=== PATIENT | male | born 1950 | race Caucasian/White ===

== ENCOUNTER 2023-12-11 13:39 | Emergency (ER) | payer MEDICARE, OTHER, SELFPAY ==
[2023-12-11 13:45] VITALS: BP 114/82; PULSE 87; O2SAT 97; BMI 28.1
--- NOTE | 2023-12-11 13:46 | XR_ITS ---
The [address] [address] Patient Name: NATASHA NEWSOME MRN: [id number] date: 1950 Sex: M Assigned Patient Location: ER Current Patient Location: ER Accession/Order Number: [id number] Exam Date: 12/11/2023 13:55 Report Date: 12/11/2023 14:22 At the request of: MARLA JENSEN Procedure: XR femur LT 2V PROCEDURE: XR tibia fibula LT 2V, XR femur LT 2V HISTORY: tractor ran over leg COMPARISON: None. FINDINGS: BONES:Moderate narrowing of the medial compartment knee joint with periarticular osteophytes. No fracture, dislocation, bone lesion. SOFT TISSUES:Subcutaneous edema medial to the knee. No radiopaque foreign body. EFFUSION:None visible. OTHER: Negative. XR/XR femur LT 2V IMPRESSION: 1. No acute bone abnormality of the femur or tibia-fibula. 2. 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 Electronically authenticated by: RHIANNON DENNIS Date: 12/11/2023 14:22
--- NOTE | 2023-12-11 13:46 | XR_ITS ---
The [address] [address] Patient Name: NATASHA NEWSOME MRN: [id number] date: 1950 Sex: M Assigned Patient Location: ER Current Patient Location: ER Accession/Order Number: [id number] Exam Date: 12/11/2023 13:55 Report Date: 12/11/2023 14:22 At the request of: MARLA JENSEN Procedure: XR tibia fibula LT 2V PROCEDURE: XR tibia fibula LT 2V, XR femur LT 2V HISTORY: tractor ran over leg COMPARISON: None. FINDINGS: BONES:Moderate narrowing of the medial compartment knee joint with periarticular osteophytes. No fracture, dislocation, bone lesion. SOFT TISSUES:Subcutaneous edema medial to the knee. No radiopaque foreign body. EFFUSION:None visible. OTHER: Negative. XR/XR tibia fibula LT 2V IMPRESSION: 1. No acute bone abnormality of the femur or tibia-fibula. 2. 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 Electronically authenticated by: RHIANNON DENNIS Date: 12/11/2023 14:22
[2023-12-11 13:48] VITALS: TEMP 36.6
--- NOTE | 2023-12-11 13:48 | ED_ITS ---
HPI HPI - Extremity Injury (Lower) General Chief Complaint: Extremity Injury, Lower Stated Complaint: LOWER EXTREMITY INJURY, LEFT Time Seen by Provider: 12/11/23 13:42 Source: patient Mode of arrival: Wheelchair History of Present Illness HPI Narrative: Patient is a 73-year-old male who presents to the emergency department for the evaluation of an injury to the left leg after a tractor ran over his leg at home. He sustained multiple abrasions and a small laceration to the left leg. Bleeding is well-controlled. Patient is on no home medications, unknown last tetanus. No other associated injuries. Patient's [id number] drove him to the emergency department. He is able to stand and transfer. Related Data Previous Rx's ?Medication ?Instructions ?Recorded cephalexin 500 mg capsule 500 mg PO Q8H 10 days #30 caps 12/11/23 hydrocodone 5 mg-acetaminophen 325 1 tab PO Q6H PRN pain 3 days #12 12/11/23 mg tablet tabs ondansetron 4 mg disintegrating 4 mg PO Q6H PRN nausea and 12/11/23 tablet vomiting #12 tabs Allergies Allergy/AdvReac Type Severity Reaction Status Date / Time No Known Drug Allergies Allergy Verified 12/11/23 13:48 Opioid HPI Opioid Management Most Recent Pain and Opioid Data: No Data to Display Review of Systems ROS Constitutional Denies: fever or chills Ears, nose, mouth, and throat Denies: throat pain Respiratory Denies: shortness of breath Gastrointestinal Denies: nausea or vomiting Musculoskeletal Reports: extremity pain; Denies: back pain, neck pain or extremity swelling Integumentary/Breast Denies: rash Hematologic/Lymphatic Denies: easy bruising or easy bleeding Exam Narrative Exam Narrative: Gen.: Awake, alert, in no distress Head: Normocephalic, atraumatic ENT: Moist mucous membranes Respiratory: No respiratory distress Extremities: Left lower extremity with abrasion noted to the medial and posterior aspect of the left leg extending from the mid thigh to the ankle. Multiple abrasions noted of the left posterior knee and left ankle. 4 cm laceration noted on the posterior aspect of the left knee adjacent to the abrasions. Mild subcutaneous tissue exposure with no active bleeding. No laceration over the knee joint or ankle joint. Psych: Normal mood and affect Neuro: No focal neuro deficit Skin: Warm, dry Constitutional Vital Signs, click to edit/add: Last Vital Signs Pulse 87 12/11/23 13:45 Resp 16 12/11/23 13:45 BP 114/82 12/11/23 13:45 Pulse Ox 97 12/11/23 13:45 O2 Del Method Room Air 12/11/23 13:45 Course Vital Signs Vital signs: Vital Signs Pulse Rate 87 12/11/23 13:45 Respiratory Rate 16 12/11/23 13:45 Blood Pressure 114/82 12/11/23 13:45 Pulse Oximetry 97 12/11/23 13:45 Oxygen Delivery Method Room Air 12/11/23 13:45 Pulse Rate 87 12/11/23 13:45 Respiratory Rate 16 12/11/23 13:45 Blood Pressure 114/82 12/11/23 13:45 Pulse Oximetry 97 12/11/23 13:45 Oxygen Delivery Method Room Air 12/11/23 13:45 MDM - Extremity Injury (Lower) MDM Narrative Medical decision making narrative: Portable x-rays were obtained of the left tib-fib and left femur. No evidence of bony abnormality and these imaging studies were reviewed by the radiologist. The 4 cm laceration to the posterior left calf was anesthetized, cleansed and approximated with sutures. Please see procedure note for details. The other abrasions were also cleansed and dressed with bacitracin, dressings and Jan wrap's. Patient treated with Ancef, tetanus update and Percocet in the ER. He is neurovascularly intact with no evidence of compartment syndrome at this time. Left thigh and left calf are soft and compressible and patient has no pain out of proportion with intact distal sensation to the leg. He was encouraged to ice and elevate the leg. Sutures removed in [address] Mccarthy. Return to the ER if symptoms change or worsen. Patient was placed on Keflex, hydrocodone and Zofran at home. Laceration repair: Done under sterile conditions. The use of Shur-Clens prep the area. Local injection with lidocaine 1% with epi was used, approximately 12 cc. The wound was irrigated copiously with normal saline. The wound was explored there was no evidence of foreign material. The laceration was approximated with 4-0 nylon. 7 simple interrupted sutures were placed. Patient tolerated the procedure well. The patient was neurovascularly intact post. the patient had bacitracin applied to the laceration and a dry sterile dressing was place. The patient will need to follow-up in the next 9-10 days for removal SUPERVISED APC VISIT, PHYSICIAN ATTESTATION: Based on the medical record the care appears appropriate. ? Medical Records Attestation: I reviewed the patient's medical records. Imaging Data XR femur/tib/fib: Attestation: I have reviewed the pertinent imaging results. Radiologist's impression: ITS Impressions Femur X-Ray 12/11/23 13:46 IMPRESSION: 1. No acute bone abnormality of the femur or tibia-fibula. 2. 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 Electronically authenticated by: RHIANNON DENNIS Date: 12/11/2023 14:22 Tibia/Fibula X-Ray 12/11/23 13:46 IMPRESSION: 1. No acute bone abnormality of the femur or tibia-fibula. 2. 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 Electronically authenticated by: RHIANNON DENNIS Date: 12/11/2023 14:22 Discharge Plan Discharge Stand Alone Forms: Portal Instructions Chief Complaint: Extremity Injury, Lower Clinical Impression: Crushing injury of left leg, Laceration of left leg, Abrasion of multiple sites of lower limb Patient Disposition: Home, Self-Care Time of Disposition Decision: 14:41 Condition: Good Prescriptions / Home Meds: New hydrocodone-acetaminophen 5-325 mg tablet 1 tab PO Q6H PRN (Reason: pain) 3 Days Qty: 12 0RF Rx Instructions: DX: S89.92XA cephalexin 500 mg capsule 500 mg PO Q8H 10 Days Qty: 30 0RF ondansetron 4 mg tablet,disintegrating 4 mg PO Q6H PRN (Reason: nausea and vomiting) Qty: 12 0RF Print Language: French Instructions: Laceration (ED), Abrasion (ED), Crush Injury (ED) Additional Instructions: Sutures removed in 9-[address] Mccarthy, call the office tomorrow to be scheduled Referrals: Physician,Non-Staff, MD [Primary Care Provider] - 1 week
[2023-12-11 13:52] VITALS: PULSE 87
[2023-12-11] MEDS: OXYCODONE HCL/ACETAMINOPHEN 5MG/325MG 1 TAB PO (14:11)
[2023-12-11] MEDS: BACITRACIN OINTMENT 28.4 GM TUBE 1 APPLIC TOPICAL (14:35)
[2023-12-11] MEDS: LIDOCAINE HCL 1%-EPINEPHRINE 1:100,000 20 ML MDV INJ (14:36)
[2023-12-11] MEDS: CEFAZOLIN SODIUM 1,000 MG, WATER FOR INJECTION,STERILE 2.5 ML IM (14:48)
[2023-12-11] MEDS: ADACEL DIPH,PERTUSS(ACELL),TET VAC/PF 0.5 ML ADULT SYRINGE IM (14:49)
== END 2023-12-11 15:09 | disposition home or self-care (01) ==
PROVIDERS: Emergency Provider Emergency Medicine Emergency Medical Services
DX: S87.82XA Crushing injury of left lower leg, initial encounter (principal); S81.812A Laceration without foreign body, left lower leg, initial encounter; S80.812A Abrasion, left lower leg, initial encounter; Z23 Encounter for immunization
CPT/HCPCS: 12002; 73552; 73590; 90471; 90715; 96372; 99284; J0690

== ENCOUNTER 2024-08-27 09:41 | Outpatient (OUT) | payer MEDICARE, OTHER, SELFPAY ==
--- NOTE | 2024-08-27 10:00 | CA_ITS ---
Patient Name: NATSAHA NEWSOME MR#: [id number] : 1950 Exam Date: 08/27/2024 Ordering Doctor: DR MARCO LUND . ECHOCARDIOGRAM REPORT PROCEDURE: CA ECHO DOPPLER COMPLETE INDICATIONS: Heart murmur COMPARISON: None. DESCRIPTION: COMPLETE ECHOCARDIOGRAM Real-time transthoracic echocardiography with 2D, M-mode, spectral and color flow Doppler performed. QUALITY: Technical quality was good. LEFT VENTRICLE: Normal chamber size. Normal left ventricular wall thickness. Low normal systolic function. LV EF: Low normal left ventricular ejection fraction, (50-55%). DIASTOLIC: Diastolic function is indeterminate. ATRIAL SEPTUM: Visually appears intact. LEFT ATRIUM: Moderate dilatation. RIGHT ATRIUM: Moderate dilatation. RIGHT VENTRICLE: Mild dilatation. Normal right ventricular systolic function. TRICUSPID VALVE: Normal mobility and thickness. No stenosis with mild regurgitation. Doppler studies reveal mildly (35-45) elevated right sided pressures. RVSP 41 mmHg MITRAL VALVE: Normal mobility and thickness. No evidence of mitral valve stenosis. There is no mitral annular calcification. Mild mitral regurgitation. AORTIC VALVE: Normal trileaflet appearance. Mildly calcified aortic valve. Normal leaflet mobility. No evidence of aortic valve stenosis. No aortic regurgitation. AORTIC ROOT: Normal diameter and appearance, measuring 3.7 cm. Ascending aorta is normal in size, measuring 3.4 cm. PULMONIC VALVE: Normal thickness and mobility. No stenosis. No regurgitation. PERICARDIUM: No evidence of pericardial effusion. IVC: Collapses with inspirations. IVC is mildly dilated (2.2 cm) PLEURA: CONCLUSION: 1. Normal left ventricular size with low normal systolic function. LVEF is estimated at 50 to 55%. 2. Mildly dilated right ventricle with normal systolic function. 3. Moderate biatrial dilatation. 4. Mild mitral and tricuspid regurgitation. 5. Mildly elevated right-sided pressures. Adult Echocardiography Procedure Report Left Ventricle LVEDD (3.7 - 5.6 cm): 4.13 cm LVESD (2.2 - 4.0 cm): 2.97 cm LVIVS thickness (0.6 - 1.2 cm): 1.12 cm LVPW thickness (0.5 - 1.0 cm): 1.09 cm e': 0.11 m/s E - e': 5.47 LVOT Max Gradient: 5.48 mm[Hg] LVOT Area (cm2): 1.17 m/s Peak Velocity (LVOT): 1.17 m/s Mean Velocity (LVOT): 0.76 m/s LVOT Diameter 2.45 cm Left Atrium LA Volume Index (2D A2C): 32.55 ml/m2 Left Atrium Systolic Dimension: 4.36 cm Mitral Valve MV E to A Ratio: 0.97 Mitral Valve A-Wave Peak Velocity: 0.64 m/s Mitral Valve E-Wave Peak Velocity: 0.62 m/s Right Ventricle Aorta AO Root Diam: 3.71 cm Ascending Ao Diam: 3.36 cm Aortic Valve AoV Area ([place]): 4.12 cm2, 4.12 cm2 AoV Area (VTI): 4.54 cm2, 4.54 cm2 Peak Velocity(Antegrade Flow): 1.34 m/s Peak Gradient(Antegrade Flow): 7.17 mm[Hg] Mean Velocity(Antegrade Flow): 0.95 m/s Mean Gradient(Antegrade Flow): 4.08 mm[Hg] Velocity Time Integral: 31.47 cm Tricuspid Valve Peak Velocity (Regurgitant Flow): 2.41 m/s, 2.87 m/s Pulmonic Valve Mean Gradient: 2.32 mm[Hg] Mean Velocity: 0.71 m/s Peak Velocity: 1.03 m/s, 1.06 m/s Peak Gradient: 4.27 mm[Hg], 4.53 mm[Hg] Right Atrium Right Atrium Systolic Pressure: 75.52 ml, 75.52 ml Dictated by: Yevgeniy Paul M.D. on 08/27/2024 at 14:56 Approved by: Yevgeniy Paul M.D. on 08/27/2024 at 15:01
== END 2024-08-27 09:42 | disposition home or self-care (01) ==
LOC: CARD 09:42
PROVIDERS: PCP Family Medicine; Visit Provider Family Medicine
DX: R01.1 Cardiac murmur, unspecified (principal)
CPT/HCPCS: 93306